=== PATIENT | female | born 1960 | race Caucasian/White ===

== ENCOUNTER → 2017-03-25 | Day surgery (SDC) | payer BC ==
[~2017-03-25] VITALS: Ht 160 cm; Wt 73.6 kg
[~2017-03-25] MED LIST: NORCO 5-325 TA1 EACH PO; THERAGRAN-M1 TAB PO; UNISOM 25 MG25 MG PO
--- NOTE | ~2017-03-25 | HP ---
PATIENT'S NAME: MILY FUNKTH Fazal [facility] AGE: 56 Y [address] ROOM: [place] [address] [place] [facility] [place]: 03/25/2017 History & Physical DISCHARGE DATE: FAMILY PHYSICIAN: Kimberly Watters MD ATTENDING PHYSICIAN: Glen Overton DATE OF SERVICE: CHIEF COMPLAINT: Acute cholecystitis. HISTORY OF PRESENT ILLNESS: Shanice Funk is a 56-year-old female, who presented to the emergency room early this morning with complaints of abdominal pain and a full feeling. She states that the pain started around 1:00 a.m. She denies any nausea or vomiting associated with this attack. She states that she has had 4 to 5 prior attacks, which have become more frequent and lasting longer. She states that in the past she thought maybe she had some food poisoning or something associated with what she ate. This morning, she decided that something else is happening and decided to come in to be evaluated. She denies any history of jaundice, hepatitis, or pancreatitis. Her evaluation in the emergency room included lab work that showed white blood cell count of 8.5. Her liver function tests, amylase and lipase were all within normal limits. H. pylori was negative. The patient had a cardiac evaluation with the enzyme that were negative and EKG showed normal sinus rhythm. She had a CT of the chest that showed mild gallbladder wall thickening and/or pericholecystic fluid that may indicate acute cholecystitis. There were no acute chest abnormalities. CT of the abdomen and pelvis again showed small pericholecystic fluid with probable mild gallbladder wall thickening. There is a 7-cm right renal hypoattenuation lesion, which was too small to characterize. Per verbal report, the patient also had an ultrasound done that showed gallstones and gallbladder wall thickening. I was contacted by the ER requesting surgical evaluation. PAST MEDICAL HISTORY: ALLERGIES: NONE. MEDICATIONS: None. ILLNESSES: None. PATIENT'S NAME: SHANICE FUNK [facility] AGE: 56 Y [address] ROOM: [place] [address] [place] [facility] [place]: 03/25/2017 History & Physical DISCHARGE DATE: FAMILY PHYSICIAN: Kimberly Watters MD ATTENDING PHYSICIAN: Glen Overton OPERATIONS: None. SOCIAL HISTORY: The patient is and lives in [place]. She does not work outside the home. She is a nonsmoker and occasionally consumes alcohol. FAMILY HISTORY: Significant for breast cancer in her mother and ovarian cancer in her sister. REVIEW OF SYSTEMS: The patient denies any recent coughs or colds. No shortness of breath or chest pain. Denies any change of bowel habits or blood in her stool. She denies any bleeding issues. She states that she is up to date on mammogram. PHYSICAL EXAMINATION: VITAL SIGNS: Temperature is 96.2, blood pressure 195/104, pulse 99, respirations 16, O2 saturations 99% on room air. GENERAL: Healthy-appearing 56-year-old female, who is alert and oriented, pleasant, and cooperative. EYES, EARS, NOSE, AND THROAT: Grossly normal. LUNGS: Clear. HEART: Regular. ABDOMEN: Quiet soft with mild tenderness in the epigastric right upper quadrant. The patient states that the pain is getting better than it was when she first came in. EXTREMITIES: The patient appears to move all extremities equally. LABORATORY WORK: White blood cell count 8.5, hemoglobin 13.9, hematocrit 40.5, platelets 264. Sodium 145, potassium 3.5, chloride 108, CO2 of 28, BUN 18, creatinine 0.9, glucose 107. Total bilirubin 0.3, alkaline phosphatase 75, AST 19, ALT 26, amylase 54, lipase 163. H. pylori was negative. DIAGNOSTIC DATA: CT and ultrasound per HPI. ASSESSMENT: This is a 56-year-old female with acute cholecystitis. PLAN: I discussed options to proceed to the operating room for removal of the gallbladder. I discussed the operation with the possibility of converting to an open procedure, we could not complete it laparoscopically. I discussed risks of bleeding, infection, injury to other structures, bile leak, hernias PATIENT'S NAME: SHANICE FUNK [facility] AGE: 56 Y [address] ROOM: [place], [place] [address] [place] [facility] [place]: 03/25/2017 History & Physical DISCHARGE DATE: FAMILY PHYSICIAN: Kimberly Watters MD ATTENDING PHYSICIAN: Glen Overton etc. Discussed expectation that she should be able to go home yet today versus tomorrow. I expect that she will be able to advance her diet as tolerated and be back to usual activities within about a week or so. I discussed the one side-effect of having the gallbladder out, it can be loose stools or stool urgency. The patient's questions and concerns were addressed. We will go ahead and proceed with getting the patient down to [facility]. Dr. Overton will be evaluating the patient momentarily. We will make his recommendations and if he agrees, then he will discuss risks, benefits, and alternatives and a consent will be obtained. Again, Dr. Overton is involved in assessment and plan as available for supervision. JUAN CARRANZA PA-C FOR MD SKYLAR RAMIREZ/braulio /[id number] D: [id number] T: [id number] HISTORY & PHYSICAL
--- NOTE | ~2017-03-25 | OR ---
PATIENT'S NAME: SAM ENRIQUEZ [facility] AGE: 56 Y [address] ROOM: [place] [id number] [place] [facility] [place] DATE: 03/25/2017 OR/Procedure Report DISCHARGE DATE: FAMILY PHYSICIAN: Kimberly Watters MD ATTENDING PHYSICIAN: Glen Overton SURGEON: Glen Overton MD MANAGER CUSTOMER: Jorge Lebron PA-C DATE OF PROCEDURE: 03/25/2017 PREOPERATIVE DIAGNOSIS: Cholelithiasis with acute cholecystitis. POSTOPERATIVE DIAGNOSIS: Cholelithiasis with acute cholecystitis. PROCEDURE PERFORMED: Laparoscopic cholecystectomy. ANESTHESIA: General endotracheal. ESTIMATED BLOOD LOSS: 10 mL. SPECIMENS: Gallbladder. REASON FOR PROCEDURE: The patient is a 56-year-old female who has had a few other attacks of right upper quadrant pain, but then, last night, developed a severe, unrelenting pain across her upper abdomen. She had an extensive workup in the emergency room and ultimately was found to have gallstones with evidence of acute cholecystitis. Her white count and liver function tests were normal. We discussed the risks and benefits of surgery versus ongoing observation. The patient elected to proceed with cholecystectomy. FINDINGS: The patient had a tense, distended, and quite edematous gallbladder with numerous stones. The cystic duct was normal in size. PROCEDURE IN DETAIL: The patient was taken to the operating suite and placed in the supine position. After general endotracheal anesthesia was obtained, the abdomen was prepped with ChloraPrep and sterilely draped. A 2 cm transverse infraumbilical incision was made. The fascia was grasped and elevated, and a Veress needle was used to obtain a pneumoperitoneum. An 11 mm trocar was then passed across the abdominal wall. Next, three 5 mm subcostal trocars were all placed under direct visualization. The gallbladder was identified. It was quite tense and distended. The wall was thick walled and inflamed. The gallbladder was too tense to grasp initially. We used a needle and aspirated 60 mL of a clear fluid from the gallbladder. We were then able to grasp the fundus and elevate it. A second grasper was placed on the infundibulum. We carefully dissected through the neck area of the gallbladder. The cystic duct and cystic artery were skeletonized up to the PATIENT'S NAME: SAM ENRIQUEZ [facility] AGE: 56 Y [address] ROOM: [place] [address] [place] [facility] [place] DATE: 03/25/2017 OR/Procedure Report DISCHARGE DATE: FAMILY PHYSICIAN: Kimberly Watters MD ATTENDING PHYSICIAN: Glen Overton gallbladder wall. These were stapled proximally and distally and then divided with scissors. The gallbladder was then mobilized free of the liver bed using cautery. The posterior wall was quite inflamed. Some minor bleeding points from the liver bed were controlled with cautery. Once the gallbladder was completely mobilized, it was placed in an endo retrieval bag and brought out from the umbilicus. We did have to stretch the fascial opening at the umbilicus some to allow removal of the thick gallbladder. We then washed out the right upper quadrant. All irrigation was removed. There were no signs of any ongoing bleeding or bile leak. The abdomen was scanned. No other abnormalities were seen. The trocars were all withdrawn, and the pneumoperitoneum was evacuated. The fascia at the umbilicus was closed with a Vicryl suture. The skin incisions were all closed with subcuticular Monocryl. Benzoin, Steri-Strips, and gauze dressings were applied. POSTPROCEDURE PLAN: The patient will be sent to Recovery and then to the floor. We will gradually advance her diet. She will receive pain medicines as necessary. MD KEVIN RAMIREZ/adanl /[id number] d: 03/25/17 1636 t: 03/27/17 0725, OPERATIVE SUMMARY
--- NOTE | ~2017-03-25 | ER ---
[facility] 56 [facility] [address] ROOM: [place] [address] [place] [facility] [place]: 03/25/2017 ER/Outpatient Report DISCHARGE DATE: FAMILY PHYSICIAN: Kimberly Watters MD ATTENDING PHYSICIAN: Glen Overton Time of Arrival: 0312 hours. Time Seen: 0340 hours. IDENTIFICATION: A 56-year-old female. CHIEF COMPLAINT: Abdominal pain. HISTORY OF PRESENT ILLNESS: The patient is a 56-year-old female with epigastric abdominal pain off and on for the last 3 weeks. Tonight, this epigastric pain has persisted. No nausea or vomiting. Some shortness of breath associated with it. Nothing seems to make it worse, nothing seems to make it better. Not necessarily related to meals. No chest pain, but she is short of breath. ALLERGIES: NO KNOWN DRUG ALLERGIES. CURRENT MEDICATIONS: No medications. MEDICAL PROBLEMS: Denies. PRIOR SURGERIES: Denies. SOCIAL HISTORY: The patient lives here in [place]. She is . Tobacco use, denies. Alcohol use, denies. Drug use, denies. FAMILY HISTORY: Mother with breast cancer. Sister with ovarian cancer. REVIEW OF SYSTEMS: All systems reviewed and negative other than what is noted in the HPI. The patient is current on her colonoscopy which is normal, and she is up to date on her mammogram. PATIENT'S NAME: SAM ENRIQUEZ [facility] AGE: 56 Y [address] ROOM: [place] [address] [place] [facility] [place]: 03/25/2017 ER/Outpatient Report DISCHARGE DATE: FAMILY PHYSICIAN: Kimberly Watters MD ATTENDING PHYSICIAN: Glen Overton PHYSICAL EXAMINATION: VITAL SIGNS: Height 5 feet 3 inches and weight 73.7 kg. Blood pressure 195/104, pulse 99, respirations 16, temperature 96.2, and saturations 99% on room air. GENERAL: A 56-year-old female, in obvious distress with 6/10 pain. HEENT: Head: Normocephalic, atraumatic. Ears: TMs translucent, both ears. Nose: Mucosa pink, no lesions. Mouth: No lesions. Pharynx benign. NECK: Supple. No lymphadenopathy. No thyromegaly. LUNGS: Clear to auscultation. Breath sounds are equal. No rhonchi, wheezes, or rales. HEART: Regular rate and rhythm. No murmur, rub, or gallop. ABDOMEN: Bowel sounds present. Soft, nondistended. Tender to palpation in the epigastric and right upper quadrant. No rebound or guarding. No CVA tenderness. SKIN: [place], warm, and dry. No lesions or rashes noted. NEURO: The patient is alert and oriented x4. Cranial nerves 2 through 12 grossly intact. Motor strength 5/5 throughout. Sensation is intact to light touch. EXTREMITIES: No lower extremity edema. No calf tenderness. EMERGENCY DEPARTMENT COURSE: The patient was given a GI cocktail with no relief. An IV was initiated and was given fentanyl for pain control with no relief x2. So then, she was given morphine 3 mg. LABORATORY DATA AND DIAGNOSTICS: UA is unremarkable. Sodium 145, potassium 3.5, chloride 108, CO2 28, BUN 18, creatinine 0.9, and blood sugar 107. Liver enzymes normal. Amylase 54, lipase 163. CPK 51, CK-MB less than 0.5, troponin I less than 0.040. H. pylori antibody negative. D-dimer elevated at 3.72. Hemoglobin 13.9, hematocrit 40.5, platelets 264, and white count 8.5 with a normal differential. CT chest PE protocol: No pulmonary emboli, mild gallbladder wall thickening and/or pericholecystic fluid which may indicate acute cholecystitis. CT abdomen with IV contrast: Small pericholecystic fluid with probable mild gallbladder wall thickening, subcentimeter right renal hypoattenuation lesion which is too small to characterize, colon diverticulosis without acute diverticulitis. EKG: Normal sinus rhythm at 88 beats per minute, no acute ST elevation or depression. Initial blood pressure was 195/104, subsequent blood pressure is 177/95. Right upper quadrant ultrasound was ordered, it was shift change, and Dr. Cid would follow up on the ultrasound. IMPRESSION: Acute cholecystitis. PATIENT'S NAME: SAM ENRIQUEZ [facility] AGE: 56 Y [address] ROOM: [place] [address] [place] [facility] [place] DATE: 03/25/2017 ER/Outpatient Report DISCHARGE DATE: FAMILY PHYSICIAN: Kimberly Watters MD ATTENDING PHYSICIAN: Glen Overton PLAN: Dr. Nath, general surgeon, was notified and will evaluate the patient and proceed with cholecystectomy. Ultrasound is pending at the time of this dictation. NADIA FLANNERY MD CAR/modl /[id number] d: 03/26/17 0145 t: 03/26/17 0244, OUTPATIENT REPORT
[2017-03-25 04:26] LABS: BASOPHIL % 0.5 %; EOSINOPHIL # 0.1 K/uL (0.0-0.5); EOSINOPHIL % 1.7 %; HEMATOCRIT 40.5 % (33.0-46.0); HEMOGLOBIN 13.9 g/dL (10.0-15.0); IMMATURE GRANULOCYTE % 0.4 %; LYMPHOCYTE # 2.1 K/uL (0.8-4.0); LYMPHOCYTE % 24.5 %; MCH 30.2 pg (27.0-34.0); MCHC 34.3 gm/dL (32.0-36.5); MCV 87.9 fl (83.0-98.0); MONOCYTE # 0.7 K/uL (0.0-1.0); MONOCYTE % 7.7 %; MPV 9.5 fl (9.4-12.4); NEUTROPHIL # (ANC) 5.5 K/uL (1.8-7.8); NEUTROPHIL % 65.2 %; NRBC % 0 /100WBC (0-0.00); PLATELET COUNT 264 K/uL (150-450); RBC 4.61 M/uL (3.50-5.50); RDW-CV 12.2 % (11.9-14.6); WBC 8.5 K/uL (4.0-11.0)
[2017-03-25 04:45] LABS: ALBUMIN 4.1 gm/dL (3.5-5.0); ALK PHOS 75 IU/L (33-138); ALT 26 IU/L (12-78); ANION GAP 12.5 (10.0-19.0); AST 19 IU/L (10-40); BLOOD UREA NITROGEN 18 mg/dL (6-24); CALCIUM 10.4 mg/dL (8.5-10.5); CHLORIDE 108 mMol/L (96-110); CO2 28 mMol/L (22-32); CPK 51 IU/L (21-215); CREATININE 0.9 mg/dL (0.5-1.1); ESTIMATED GFR (MDRD EQUATION) > 60; POTASSIUM 3.5 mMol/L (3.7-5.1); SODIUM 145 mMol/L (135-145); TOTAL BILIRUBIN 0.3 mg/dL (0.0-1.5); TOTAL PROTEIN 7.7 g/dL (6.0-8.4)
[2017-03-25 05:07] LABS: BILIRUBIN URINE NEGATIVE (NEGATIVE); BLOOD URINE 10 /UL (NEGATIVE); COLOR URINE YELLOW (YELLOW); GLUCOSE URINE NEGATIVE (NEGATIVE); KETONE URINE NEGATIVE (NEGATIVE); LEUKOCYTES URINE NEGATIVE /UL (NEGATIVE); NITRITE URINE NEGATIVE (NEGATIVE); PROTEIN URINE NEGATIVE (NEGATIVE); TURBIDITY URINE CLEAR (CLEAR); UROBILINOGEN URINE NORMAL (NORMAL)
[2017-03-25 05:16] LABS: BACTERIA URINE NEGATIVE (NEGATIVE); EPITHELIAL URINE 0-2 #/HPF (NEGATIVE); RBC URINE 0-2 #/HPF (NEGATIVE); WBC URINE NEGATIVE #/HPF (NEGATIVE)
== END | disposition disaster alternative care site (69) ==
LOC: GMED 03:12 → GSDC 07:24
PROVIDERS: Family Medicine
PROC: 0FT44ZZ Resection of Gallbladder, Percutaneous Endoscopic Approach (ICD-10-PCS; principal; 2017-03-25)
DX: K80.10 Calculus of gallbladder with chronic cholecystitis without obstruction (principal)
CPT/HCPCS: J0694; J2270; J3010; Q9967